=== PATIENT | female | born 1955 | race Caucasian/White ===

== ENCOUNTER → 2017-10-14 | Outpatient (REF) | payer OTHER ==
[2017-10-14 16:25] LABS: INFLUENZA A AMPLIFICATION NEGATIVE (NEGATIVE); INFLUENZA B AMPLIFICATION NEGATIVE (NEGATIVE)
== END ==
LOC: M LAB REF 10-15 10:11
DX: J11.1 Influenza due to unidentified influenza virus with other respiratory manifestations (principal)

== ENCOUNTER → 2018-11-27 | Outpatient (CLI) | payer OTHER ==
[~2018-11-27] MED LIST: AMAR1TAB5 PO; COUM2.5T17 PO; DEPA1TAB3 PO; JANU100T PO; KETO10TAB PO; LEXA1TAB2 PO; LIPI20TA PO; NOVOINJ3 SC; NUCY50TA19 PO; PROTPAK PO; TRAM50TA2 PO; TYLE325T5 PO
[2018-11-27 10:50] LABS: BASO % 0.4 % (0.0-1.0); EOS # 0.1 10^3/uL (0.0-0.50); EOS % 1.8 % (0.0-3.0); HEMATOCRIT 39.6 % (36.0-47.0); HEMOGLOBIN 12.9 g/dl (12.0-15.5); LYMPH # 1.8 10^3/uL (1.5-4.5); LYMPH % 36.3 % (24.0-44.0); MEAN CORPUSCULAR HEMOGLOBIN 28.4 pg (27.0-33.0); MEAN CORPUSCULAR HGB CONC 32.6 g/dl (32.0-36.5); MONO # 0.6 10^3/uL (0.0-0.8); MONO % 11.3 % (0.0-5.0); NEUTROPHILS # 2.4 10^3/uL (1.8-7.7); PLATELET COUNT, AUTOMATED 180 10^3/uL (150-450); RED BLOOD COUNT 4.55 10^6/uL (4.00-5.40); WHITE BLOOD COUNT 4.9 10^3/uL (4.0-10.0)
[2018-11-27 11:23] LABS: CHOLESTEROL RISK RATIO 3.49 (<5); VALPROIC ACID (DEPAKOTE) 63.3 UG/ML (50.0-100.0)
[2018-11-27 11:37] LABS: MALB URINE SIEMENS 5.2 MG/L; MAU/CREAT RATIO 2.9 MCG/MG (0.0-30.0)
[2018-11-27 11:42] LABS: HEMOGLOBIN A1c 7.8 %
== END ==
LOC: M LAB 09:45
PROVIDERS: ATTEND Nurse Practitioner Family
DX: E11.69 Type 2 diabetes mellitus with other specified complication (principal); G40.909 Epilepsy, unspecified, not intractable, without status epilepticus; E78.5 Hyperlipidemia, unspecified

== ENCOUNTER → 2019-06-26 | Outpatient (CLI) | payer OTHER ==
[2019-06-26 10:28] LABS: HEMOGLOBIN A1c 8.7 %
[2019-06-26 11:08] LABS: ALBUMIN 3.7 GM/DL (3.2-5.2); ALT/SGPT 23 U/L (12-78); BILIRUBIN,TOTAL 0.5 MG/DL (0.2-1.0); BLOOD UREA NITROGEN 18 MG/DL (7-18); CALCIUM LEVEL 9.3 MG/DL (8.8-10.2); CARBON DIOXIDE LEVEL 28 MEQ/L (21-32); CHLORIDE LEVEL 106 MEQ/L (98-107); CHOLESTEROL LEVEL 289 MG/DL (<200); CHOLESTEROL RISK RATIO 5.351 (<5); CREATININE FOR GFR 0.88 MG/DL (0.55-1.30); FREE T4 0.88 NG/DL (0.76-1.46); GLOMERULAR FILTRATION RATE > 60.0 (>45); GLUCOSE, FASTING 187 MG/DL (70-100); HDL CHOLESTEROL 54 MG/DL (>40); LDL CHOLESTEROL 182 MG/DL (<100); NON-HDL-C 235 MG/DL; POTASSIUM SERUM 4.4 MEQ/L (3.5-5.1); SODIUM LEVEL 140 MEQ/L (136-145); TOTAL PROTEIN 6.8 GM/DL (6.4-8.2); TRIGLYCERIDES LEVEL 264 MG/DL (<150)
== END ==
LOC: M LAB 09:08
DX: E11.69 Type 2 diabetes mellitus with other specified complication (principal); I10 Essential (primary) hypertension; E78.5 Hyperlipidemia, unspecified

== ENCOUNTER 2020-03-14 13:04 | Emergency (ER) | payer OTHER ==
[~2020-03-14] VITALS: Ht 154.9 cm; Wt 109.1 kg
[2020-03-14] MEDS ORDERED: ADME100I (13:17)
[2020-03-14] MEDS ORDERED: FURO20TA2 (13:17)
[2020-03-14] MEDS ORDERED: METF500T13 (13:17)
[2020-03-14] MEDS ORDERED: GLIM4TAB5 (13:17)
[2020-03-14] MEDS ORDERED: PANT40TA3 PO (13:40)
[2020-03-14] MEDS ORDERED: LEXA5TAB13 PO (13:40)
[2020-03-14] MEDS ORDERED: LABE10TAB PO (13:40)
[2020-03-14] MEDS ORDERED: PROM25TA12 PO (13:40)
--- NOTE | 2020-03-14 13:56 | REP ---
Clinical: Trauma. Technique: AP, lateral, bilateral oblique views of the right and left knee. Findings: Right knee demonstrates advanced tricompartmental osteoarthritic degenerative changes and soft tissue swelling. Lateral view demonstrates a corner fracture along the superior margin of the patella of indeterminate age and clinical correlation is recommended. Left knee demonstrates prior arthroplasty without acute fracture or dislocation. Impression: Cannot exclude acute versus chronic fracture along the superior margin of the right patella. Electronically Signed by Mariano Orantes MD 03/14/2020 01:47 P
--- NOTE | 2020-03-14 14:48 | REP ---
Clinical: Trauma. Possible acute patellar fracture. Technique: Axial noncontrast images of the right knee with coronal and sagittal re-formations. Findings: Advanced tricompartmental osteoarthritic degenerative changes are appreciated. The patella demonstrates a fractured osteophytes along the superior margin which appear well corticated and likely represent old fractures. There is no evidence for acute fracture or dislocation to the knee. A small to moderate joint and suprapatellar effusion is noted which may be chronic. The subcutaneous tissues appear relatively normal and without significant traumatic stranding. Visualized musculature appear relatively age-appropriate. Impression: 1. Advanced tricompartmental osteoarthritic degenerative changes along with presumed chronic effusion. 2. Fractured fragments along the superior aspect of the patella identified on x-ray appear well corticated and likely represent chronic injury. Electronically Signed by Mariano Orantes MD 03/14/2020 02:39 P
[2020-03-14 15:17] VITALS: BP 155/78
== END 2020-03-14 15:20 | disposition home or self-care (01) ==
LOC: M ED 13:04
DX: S80.01XA Contusion of right knee, initial encounter (principal); S80.02XA Contusion of left knee, initial encounter; W10.9XXA Fall (on) (from) unspecified stairs and steps, initial encounter; Y92.099 Unspecified place in other non-institutional residence as the place of occurrence of the external cause; Y93.9 Activity, unspecified; Y99.9 Unspecified external cause status; M17.11 Unilateral primary osteoarthritis, right knee; E11.9 Type 2 diabetes mellitus without complications; Z79.4 Long term (current) use of insulin; Z79.899 Other long term (current) drug therapy; Z88.0 Allergy status to penicillin; Z88.8 Allergy status to other drugs, medicaments and biological substances

== ENCOUNTER → 2020-07-13 | Outpatient (CLI) | payer OTHER ==
[~2020-07-13] MED LIST changes: +ADME100I; +FURO20TA2; +GLIM4TAB5; +LABE10TAB PO; +LEXA5TAB13 PO; +METF500T13; +PANT40TA29 PO; +PROM25TA12 PO
[2020-07-13 11:03] LABS: HEMOGLOBIN 14.1 g/dl (12.0-15.5); MEAN CORPUSCULAR HEMOGLOBIN 28.7 pg (27.0-33.0); MEAN CORPUSCULAR VOLUME 89.4 fl (80.0-96.0); PLATELET COUNT, AUTOMATED 235 10^3/uL (150-450); RED BLOOD COUNT 4.92 10^6/uL (4.00-5.40); WHITE BLOOD COUNT 6.6 10^3/uL (4.0-10.0)
[2020-07-13 11:13] LABS: INR 0.93; PROTHROMBIN TIME 12.7 SECONDS (12.5-14.3)
[2020-07-13 11:28] LABS: ALBUMIN 3.8 GM/DL (3.2-5.2); ALT/SGPT 43 U/L (12-78); BILIRUBIN,TOTAL 0.5 MG/DL (0.2-1.0); BLOOD UREA NITROGEN 11 MG/DL (7-18); CARBON DIOXIDE LEVEL 27 MEQ/L (21-32); CHLORIDE LEVEL 106 MEQ/L (98-107); CREATININE FOR GFR 0.97 MG/DL (0.55-1.30); GLOMERULAR FILTRATION RATE > 60.0 (>45); GLUCOSE, FASTING 133 MG/DL (70-100); SODIUM LEVEL 139 MEQ/L (136-145); TOTAL PROTEIN 7.1 GM/DL (6.4-8.2)
[2020-07-13 11:33] LABS: ERYTHROCYTE SEDIMENTATION RATE 9 mm/hr (0-30)
--- NOTE | 2020-07-13 11:44 | REP ---
INDICATION: RIGHT KNEE ARTHROPLASTY LAB 1ST, EKG 2ND, XRAY 3RD. COMPARISON: 10/01/2015 TECHNIQUE: Two views FINDINGS: Lungs remain well inflated and clear. The heart mediastinal and hilar contours were unchanged. No cardiomegaly, vascular redistribution or edema. The aorta is mildly tortuous and ectatic but stable. Airway intact. There are degenerative changes throughout the spine with marginal osteophytes but no compression deformity. Right upper quadrant clips from prior cholecystectomy. IMPRESSION: 1. No acute cardiopulmonary changes, stable chest. <Electronically signed by Clyde Tavera > 07/13/20 [id number]
--- NOTE | 2020-07-13 14:11 | ECGEPIP ---
[facility] Test Date: 2020-07-13 Pat Name: NIRALI STORY Department: Room: - Gender: Female Avionics Systems Technician: : 1955 Requested By: Lucas Goldman Order Number: [id number] Reading MD: Toni Casas Measurements Intervals [place] Rate: 80 P: 54 HI: 134 QRS: 2 QRSD: 82 T: 75 QT: 332 QTc: 385 Interpretive Statements SINUS RHYTHM WITH SINUS ARRHYTHMIA Short HI interval Nonspecific ST-T wave abnormalities Similar to tracing done 10-18-15 Electronically Signed on 07-13-2020 14:10:59 EST by Toni Casas
== END ==
LOC: M LAB 10:11
PROVIDERS: ATTEND Orthopaedic Surgery
DX: Z01.818 Encounter for other preprocedural examination (principal); M17.11 Unilateral primary osteoarthritis, right knee; R94.31 Abnormal electrocardiogram [ECG] [EKG]

== ENCOUNTER → 2020-07-17 | Outpatient (CLI) | payer OTHER ==
[~2020-07-17] MED LIST changes: -ADME100I; +ADME100I SQ; +BASA100I SC; -FURO20TA2; +FURO20TA2 PO; -GLIM4TAB5; +GLIM4TAB5 PO; +LOVE1INJ SC; -METF500T13; +METF500T13 PO; +XARE20TA PO
== END ==
LOC: M LABSMTC 08:16
PROVIDERS: ATTEND Anesthesiology
DX: Z01.812 Encounter for preprocedural laboratory examination (principal); Z20.828 Contact with and (suspected) exposure to other viral communicable diseases
CPT/HCPCS: C9803; U0003

== ENCOUNTER 2020-07-22 06:45 | Inpatient (IN) | payer OTHER ==
--- NOTE | 2020-07-20 07:15 | HPE ---
DATE OF ANTICIPATED ADMISSION: 07/22/2020 CHIEF COMPLAINT: Right knee pain. HISTORY OF PRESENT ILLNESS: Prisca is a pleasant 64-year-old female with progressively worsening right knee pain and stiffness. She has failed to improve with conservative treatment. She has elected for surgery for her intrinsic symptoms. She has pain with weight bearing activities and her activities of daily living. X-rays of her knee are notable for advanced osteoarthritis of the right knee joint. She has consented for a right total knee arthroplasty by Dr. Lucas Goldman. Medical optimization was performed by Dr. Golden office. ALLERGIES: * Demerol. * Penicillin. CURRENT MEDICATIONS: * Alogliptin 25 mg daily. * Pantoprazole Sodium 40 mg daily. * Atorvastatin 40 mg daily. * Glimepiride 4 mg daily. * Divalproex 500 mg twice daily. * NovoLog 35 units three times daily. * Toujeo 10 mg at bedtime. PAST MEDICAL HISTORY: The patient's past medical history includes: 1. Diabetes. 2. Gastroesophageal reflux disease. PAST SURGICAL HISTORY: The patient's past surgical history is significant for: 1. Left total knee. 2. Throat surgery. 3. Hysterectomy. 4. Hand surgery. 5. Abdominal surgeries. 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 FAMILY HISTORY: Noncontributory. REVIEW OF SYSTEMS: This patient denies chest pain, heart palpitations, cough, wheezing, difficulty breathing and shortness of breath. She denies abdominal pain, nausea, vomiting, diarrhea or constipation. She denies recent upper respiratory infection or urinary tract infection symptoms. She does complain of persistent pain in the right knee. PHYSICAL EXAMINATION: GENERAL APPEARANCE: A well-developed, well-nourished, in no acute distress, alert female patient. She walks with a moderate limp, favoring her right lower extremity. She is not using assistive devices. VITAL SIGNS: She is 5 feet, 3 inches, weighs 248.8 pounds with a temperature of 98, blood pressure 138/55, pulse of 68 and respirations of 12. NECK: Supple without adenopathy or jugular venous distention. No carotid bruits appreciated. LUNGS: Upon auscultation, lungs were clear to auscultation with rales or wheeze throughout. HEART: Regular rate and rhythm. ABDOMEN: Bowel sounds were present. EXTREMITIES: Examination of the knee revealed intact skin. She had decreased range of motion due to pain and stiffness. The limbs neurovascularly are intact. IMAGING: EKG shows normal sinus rhythm at 80 beats per minute. Chest x-ray showed no acute cardiopulmonary disease processes. LABORATORY STUDIES: Pro time 12.7, INR 0.93, glucose 133, BUN 11, creatinine 0.97, sodium 139, potassium 4.0. CBC was within normal limits. Sed rate was 9. IMPRESSION: Symptomatic osteoarthritis of the right knee. PLAN: Consented for a right total knee arthroplasty by Dr. Lucas Goldman. MIKE
[~2020-07-22] VITALS: Ht 154.9 cm; Wt 111.1 kg
[2020-07-22] VITALS (7 sets, daily range): BP systolic 124–148; BP diastolic 65–89; O2SAT 95
[~2020-07-22 06:45] MED LIST changes: +CLINDAMYCIN 900 MG in IV 1 EA IV ONE; +LIDOCAINE 1% MDV 20ML VIAL SQ PRN; +LR 1,000 ML IV ONE; +fentaNYL 100 MCG/2 ML INJECTION (J3010) IV SCH
[2020-07-22] MEDS ORDERED: TRANEXAMIC ACID 100 MG/ML 10ML VIAL As Ordered ONE (07:27)
[2020-07-22] MEDS ORDERED: EPINEPHrine INJ 1 MG/ML 1ML AMP As Ordered ONE (07:28)
[2020-07-22] MEDS ORDERED: BUPIVACAINE LIPOSOME/PF 1.3% 20ML VIAL (13.3MG/ML)(EXPAREL)(C9290 PER1MG) As Ordered ONE ×2 (07:28→09:41)
[2020-07-22] MEDS ORDERED: fentaNYL 100 MCG/2 ML INJECTION (J3010) As Ordered ONE ×2 (08:21→08:24)
[2020-07-22] MEDS ORDERED: MIDAZOLAM INJ 2MG/2ML VIAL (J2250 PER 1MG) As Ordered ONE ×2 (08:21→08:24)
[2020-07-22] MEDS ORDERED: propofoL 500 MG/50 ML VIAL As Ordered ONE (08:21)
[2020-07-22] MEDS ORDERED: LIDOCAINE 2% 100MG/5ML SDV (FOR ANES.) As Ordered ONE (08:21)
[2020-07-22] MEDS: MIDAZOLAM INJ 2MG/2ML VIAL (J2250 PER 1MG) IV SCH ×2 (08:41→08:45)
[2020-07-22] MEDS ORDERED: BUPIVACAINE HCL 0.25% 10ML VIAL As Ordered ONE (09:10)
[2020-07-22] MEDS ORDERED: CLINDAMYCIN INJ 900MG/6ML VIAL As Ordered ONE (09:15)
[2020-07-22] MEDS ORDERED: dexameTHASONE 4 MG/ML 1ML VIAL (J1100 PER 1MG) As Ordered ONE (10:13)
[2020-07-22] MEDS ORDERED: ONDANSETRON 4MG/2ML VIAL As Ordered ONE (10:13)
[2020-07-22] MEDS ORDERED: KETOROLAC 60MG 2ML VIAL As Ordered ONE (10:13)
[2020-07-22] MEDS ORDERED: MORPHINE 2 MG/ML 1ML VIAL (J2270) IV PRN (11:30)
[2020-07-22] MEDS ORDERED: oxyCODONE 5MG TAB PO PRN (11:30)
[2020-07-22] MEDS ORDERED: ONDANSETRON 4MG/2ML VIAL IV PRN ×2 (11:30)
[2020-07-22] MEDS ORDERED: LR 1,000 ML IV SCH ×2 (11:30)
[2020-07-22] MEDS ORDERED: MORPHINE 4 MG/ML 1ML VIAL/SYRINGE (J2270) IV PRN (11:30)
[2020-07-22] MEDS ORDERED: fentaNYL 100 MCG/2 ML INJECTION (J3010) IV PRN (11:30)
[2020-07-22] MEDS ORDERED: METOCLOPRAMIDE INJ 10MG/2ML VIAL (J2765 PER 1) IV PRN (11:30)
--- NOTE | 2020-07-22 11:41 | REP ---
INDICATION: POST OP. COMPARISON: X-ray and CT 03/14/2020 TECHNIQUE: Two views FINDINGS: Patient has undergone right total knee arthroplasty. Skin dolores are seen anteriorly. There is some air and fluid in the suprapatellar bursa and knee joint and subcutaneous air anterior to the knee. The 3 components of the prosthesis are well aligned in relationship to the [place] bone and each other. IMPRESSION: Status post right total knee arthroplasty. <Electronically signed by Clyde Tavera > 07/22/20 [id number]
[2020-07-22] MEDS ORDERED: dexameTHASONE 10MG/1ML VIAL PRES.FREE (J1100 PER 1MG) ONE (11:43)
[2020-07-22] MEDS ORDERED: ROPIvacaine 0.5% 30ML INJECTION (J2795 PER 1MG) ONE (11:43)
[2020-07-22] MEDS ORDERED: EPINEPHrine INJ 1 MG/ML 1ML AMP ONE (11:43)
--- NOTE | 2020-07-22 14:20 | RO ---
DATE OF OPERATION: 07/22/2020 PREOPERATIVE DIAGNOSIS: Right knee osteoarthritis. POSTOPERATIVE DIAGNOSIS: Right knee osteoarthritis. PROCEDURE: Right total knee arthroplasty ATTUNE, rotating platform, cruciate retaining size 4, femur size 4, tibia 10 polyethylene, 35 patellar button. SURGEON: Lucas Goldman MD AUTO BODY REPAIRER: TONY Stewart ANESTHESIA: Spinal. ESTIMATED BLOOD LOSS: 50 ml COMPLICATIONS: None. PROCEDURE: The patient was taken to the operating room, placed in the supine position after spinal anesthesia was induced. The right lower extremity was prepped and draped in the usual sterile fashion. Time-out was performed, tourniquet inflated. I then created a longitudinal incision over the anterior aspect of the knee, sharply dissected down through subcutaneous tissue. Performed a medial peripatellar arthrotomy and everted the patella with some difficulty due to her morbid obesity. Then I used a rongeur to remove some osteophytes. The canal initiating reamer followed by the intramedullary reamer set at 5 degrees of valgus, 8 mm cut. This was pinned in place. The distal femoral cut was made in the usual fashion. The femur was sized to be a 4 and the drill holes were placed at the end of femur. The cutting block was secured and the remaining cuts were made. I then placed the posterior retractor. I had also done a medial release and removed some soft tissues in the anterior distal femur. The tibial alignment guide was placed and appropriate amount of valgus and posterior slop pinned in place at about 4 off of the low side, which was pretty close to 10 off of the lateral side. The proximal tibial cut was made protecting soft tissues. The PCL was maintained. I then used the electronic installer to remove soft tissue and osteophytes from either side of the knee. The spacer block was then trialed and the size 10 seemed to have excellent stability in range of motion and flexion and extension. The tibial surface was prepared. The sulcus cut was prepared. They used a size 4 tibial tray, pinned it in place, drilled, broached and placed the trial components. The size 10 polyethylene seemed to be the most appropriate. There was excellent stability and excellent range of motion. There was some soft tissue impingement due to obesity posteriorly. I did have to do a bit of a lateral release. I free hand cut the patella, moving about 7 mm of bone sized to be a 35, drilled the holes and put the knee through range of motion, was able to eventually get the patella to tract very nicely. Drill holes were placed at the end of the femur. The pharmacy technician assistant prepared the bone cement in the moderate technique. I then placed the Exparel in the deep tissues with some Marcaine and the surfaces were copiously irrigated and dried. I then cemented on the components, removed excess bone cement, held the patella in place until the cement hardened. I placed the TXA in the deep wound and the repaired the deep layer with #1 Vicryl suture and running STRATAFIX suture and then performed a final irrigation prior to final wound closure. The remaining wound was closed with STRATAFIX. I then irrigated, closed the subcutaneous with 2-0 Vicryl and the skin with dolores. Tourniquet was deflated when the cement was hardened. Sterile dressing was applied and she was taken to the recovery room in stable condition. There are no known complications. This is code unusual difficult procedure due to the patient's body mass index (BMI) of about 41, which made the dissection more difficult. The patella seemed to tract off to the lateral side, had to more centralize. The overall time was extended and the procedure was quite a bit more difficult due to the size of the leg. The pharmacy technician assistant was instrumental in holding retractors and assisting in wound closure and assisting in mixing the bone cement. MIKE
[2020-07-22 15:49] LABS: HEMATOCRIT 39.5 % (36.0-47.0); HEMOGLOBIN 12.9 g/dl (12.0-15.5); MEAN CORPUSCULAR HEMOGLOBIN 29.6 pg (27.0-33.0); MEAN CORPUSCULAR HGB CONC 32.7 g/dl (32.0-36.5); MEAN CORPUSCULAR VOLUME 90.6 fl (80.0-96.0); PLATELET COUNT, AUTOMATED 155 10^3/uL (150-450); RED BLOOD COUNT 4.36 10^6/uL (4.00-5.40); WHITE BLOOD COUNT 8.9 10^3/uL (4.0-10.0)
[2020-07-22] MEDS ORDERED: DEXTROSE 50% 50 ML SYRINGE IV PRN (16:30)
[2020-07-22] MEDS ORDERED: GLUCAGON INJ 1MG VIAL SC PRN (16:30)
[2020-07-22] MEDS ORDERED: GLUCOSE 4GM CHEW TABLET PO PRN (16:30)
--- NOTE | 2020-07-22 16:38 | HPEPDOC ---
General Date of Admission Jul 22, 2020 at 06:45 Date of Service: Jul 22, 2020 Chief Complaint The patient is a 64-year-old female admitted with a reason for visit of Right Knee Arthritis. Source: Patient Exam Limitations: No limitations Severity: Mild, Moderate History of Present Illness Patient is 64 years old female with past history of type 2 diabetes, pulmonary emboli and GERD presented hospital for elective right knee replacement. This surgery was done today, patient tolerated procedure well. Patient stated that a few years ago she developed pulmonary emboli, patient was on the xarelto. Patient denied fever, chills, nausea, went, diarrhea or dysuria. Home Medications Scheduled Divalproex Sodium (Depakote) 500 Mg Tab, 500 MG PO TID, (Reported) Escitalopram Oxalate (Lexapro) 5 Mg Tablet, 5 MG PO DAILY, (Reported) Furosemide (Furosemide) 20 Mg Tablet, 20 MG PO DAILY, (Reported) Glimepiride (Glimepiride) 4 Mg Tablet, 4 MG PO BID, (Reported) Insulin Glargine,Hum.rec.anlog (Basaglar Kwikpen U-100) 100 Unit/1 Ml Insuln.pen, 18 UNITS SC QHS, (Reported) Insulin Lispro (Admelog) 100 Unit/1 Ml Vial, 40 UNITS SQ TID, (Reported) Labetalol HCl (Labetalol HCl) 100 Mg Tablet, 100 MG PO BID, (Reported) Metformin HCl (Metformin HCl) 500 Mg Tablet, 500 MG PO BID, (Reported) Pantoprazole Sodium (Pantoprazole Sodium) 40 Mg Tablet.dr, 40 MG PO DAILY, (Reported) Rivaroxaban (Xarelto) 20 Mg Tablet, 20 MG PO DAILY, (Reported) with food Miscellaneous Medications Enoxaparin Sodium (Lovenox) 40 Mg/0.4 Ml Syringe, 80 MG SC, (Reported) pt will be taking on 07/21/20 day before surgery as per dr wahl Allergies Coded Allergies: meperidine (Verified Allergy, Severe, throat swelling, 07/16/20) Penicillins (Verified Allergy, Intermediate, hives, 07/16/20) Past Medical History Medical History Diabetes type 2, acid reflux, hypertension, hyperlipidemia, osteoarthritis Surgical History 1. Left total knee. 2. Throat surgery. 3. Hysterectomy. 4. Hand surgery. 5. Abdominal surgeries. Family History I personally reviewed family history and found not pertinent Social History * Smoker: Denies Alcohol: Denies Drugs: denies A-FIB/CHADSVASC A-FIB History Current/History of A-Fib/PAF?: No Current PO Anticoag Therapy: No Review of Systems Constitutional: Denies: Chills, Fever Eyes: Denies: Pain ENT: Denies: Head Aches Skin: Denies: Rash Pulmonary: Denies: Dyspnea, Cough Cardiovascular: Denies: Chest Pain Gastrointestinal: Denies: Nausea, Vomiting Genitourinary: Denies: Dysuria Hematologic: Denies: Bruising Endocrine: Denies: Polydipsia, Polyphagia Musculoskeletal: Denies: Neck Pain Psych: Reports: Mood Normal Physical Examination General Exam: Positive: Alert, Cooperative Eye Exam: Positive: PERRLA ENT Exam: Positive: Atraumatic Neck Exam: Positive: Supple; Negative: JVD Chest Exam: Positive: Clear to auscultation Heart Exam: Positive: Rate Normal Telemetry: Positive: No significant arrhythmia Abdomen Exam: Positive: Normal bowel sounds Extremity Exam: Negative: Clubbing, Cyanosis Skin Exam: Positive: Nl turgor and temperature Neuro Exam: Positive: Cranial Nerves 3-12 NL, Reflexes 2+ Psych Exam: Positive: Mental status NL Vital Signs Vital Signs Date Time Temp Pulse Resp B/P (MAP) Pulse Ox O2 Delivery O2 Flow Rate FiO2 07/22/20 15:50 97.8 70 16 148/89 (108) 97 Room Air 07/22/20 14:40 2 Laboratory Data Labs 24H Laboratory Tests 2 07/22/20 07:57: Bedside Glucose (Misc Panel) 169H 07/22/20 11:22: Bedside Glucose (Misc Panel) 183H 07/22/20 15:41: Nucleated Red Blood Cells % (auto) 0.0 CBC/BMP Laboratory Tests 07/22/20 15:41 Assessment/Plan Patient is 64 years old female with past history of type 2 diabetes, pulmonary emboli and GERD presented hospital for elective right knee replacement. This surgery was done today, patient tolerated procedure well. Patient stated that a few years ago she developed pulmonary emboli, patient was on the xarelto. Patient denied fever, chills, nausea, went, diarrhea or dysuria. Problems (1) Status post right knee replacement Status: Acute Problem Text: Pain management Continue oral targeted anticoagulation (2) Diabetes mellitus Status: Chronic Problem Text: Continue home insulin regimen Insulin sliding scale with before meals, at bedtime Levemir 20U Diabetes diet (3) GERD (gastroesophageal reflux disease) Problem Text: Continue PPI Plan / VTE VTE Prophylaxis Ordered?: Yes MALLIKA DENTON DO Jul 22, 2020 16:38
[2020-07-22] MEDS ORDERED: HumaLOG INSULIN (NovoLOG) PER UNIT SQ SCH (17:30)
[2020-07-22] MEDS: PERCOCET 5MG/325MG TAB PO PRN ×2 (17:45→22:14)
[2020-07-22] MEDS: CLINDAMYCIN 900 MG in IV 1 EA IV SCH (17:50)
[2020-07-22] MEDS: HumaLOG INSULIN (NovoLOG) PER UNIT SC SCH ×2 (17:51→22:15)
[2020-07-22] MEDS ORDERED: GLIMEPIRIDE 2 MG TAB PO SCH (18:00)
[2020-07-22] MEDS ORDERED: metFORMIN (GLUCOPHAGE) 500 MG TAB PO SCH (18:00)
[2020-07-22] MEDS: DIVALPROEX 500 MG TAB PO SCH (22:14)
[2020-07-22] MEDS: LEVEMIR (INSULIN DETEMIR) 1 UNITS/0.01ML SC SCH (22:15)
[2020-07-22] MEDS: LABETALOL 100 MG TAB PO SCH (22:16)
[2020-07-23 01:48] VITALS: BP 109/56
[2020-07-23] MEDS: PERCOCET 5MG/325MG TAB PO PRN ×4 (02:32→20:38)
[2020-07-23] MEDS: CLINDAMYCIN 900 MG in IV 1 EA IV SCH (02:32)
[2020-07-23 06:32] VITALS: BP 106/57
[2020-07-23] MEDS ORDERED: PERC5TAB12 PO (06:49)
[2020-07-23] MEDS: HumaLOG INSULIN (NovoLOG) PER UNIT SC SCH ×4 (07:21→20:38)
[2020-07-23] MEDS: LABETALOL 100 MG TAB PO SCH ×3 (09:00→20:39)
[2020-07-23 09:57] VITALS: BP 121/68
[2020-07-23] MEDS: ESCITALOPRAM OXALATE 5MG TABLET (LEXAPRO) PO SCH (09:58)
[2020-07-23] MEDS: PANTOPRAZOLE 40MG TAB (PROTONIX) PO SCH (09:58)
[2020-07-23] MEDS: MIRALAX *UNIT DOSE* 17GM PACKET PO SCH (09:58)
[2020-07-23] MEDS: DIVALPROEX 500 MG TAB PO SCH ×3 (09:59→20:38)
[2020-07-23] MEDS: FUROSEMIDE 20 MG TAB PO SCH (10:00)
[2020-07-23] MEDS: MOM 30ML SUSPENSION UDC PO SCH (10:00)
--- NOTE | 2020-07-23 11:43 | IPN ---
ORTHOPAEDIC PROGRESS NOTE DATE: 07/22/2020 SUBJECTIVE AND PLAN: Patient seen and examined. She wished to go ahead with a right total knee arthroplasty. She is aware of the nature of the procedure, the risks of bleeding, infection, damage to nerves and vessels, persistent pain, gomes loosening, blood clots, medical problems, among others. MIKE
[2020-07-23 14:00] VITALS: BP 111/50
[2020-07-23 18:00] VITALS: BP 108/52
[2020-07-23] MEDS ORDERED: RIVAROXABAN 20 MG TAB (XARELTO) PO SCH (18:00)
[2020-07-23 20:22] VITALS: BP 123/71
[2020-07-23] MEDS: LEVEMIR (INSULIN DETEMIR) 1 UNITS/0.01ML SC SCH (20:37)
[2020-07-24] MEDS: PERCOCET 5MG/325MG TAB PO PRN (01:50)
[2020-07-24 05:53] VITALS: BP 124/62
[2020-07-24 08:09] VITALS: BP 124/62
[2020-07-24] MEDS: MOM 30ML SUSPENSION UDC PO SCH (08:09)
[2020-07-24] MEDS: DIVALPROEX 500 MG TAB PO SCH (08:09)
[2020-07-24] MEDS: LABETALOL 100 MG TAB PO SCH (08:09)
[2020-07-24] MEDS: ESCITALOPRAM OXALATE 5MG TABLET (LEXAPRO) PO SCH (08:09)
[2020-07-24] MEDS: MIRALAX *UNIT DOSE* 17GM PACKET PO SCH (08:09)
[2020-07-24] MEDS: PANTOPRAZOLE 40MG TAB (PROTONIX) PO SCH (08:09)
[2020-07-24] MEDS: FUROSEMIDE 20 MG TAB PO SCH (08:10)
[2020-07-24] MEDS: HumaLOG INSULIN (NovoLOG) PER UNIT SC SCH ×2 (08:10→12:56)
--- NOTE | 2020-07-27 07:27 | DS ---
DATE OF ADMISSION: 07/22/2020 DATE OF DISCHARGE: 07/24/2020 ATTENDING: Lucas Goldman MD. ADMITTING DIAGNOSIS: Osteoarthritis right knee. OTHER DIAGNOSES: Include: * Diabetes type-2. * Pulmonary emboli. * Gastroesophageal reflux disease. * Hypertension. * Elevated lipids. DISCHARGE DIAGNOSIS: Osteoarthritis right knee status post right total knee arthroplasty. HISTORY: This is a 64-year-old female patient with progressively worsening right knee pain and stiffness. She failed to improve with conservative management. She was admitted for elective knee replacement on the right side. OPERATION PERFORMED: Right total knee arthroplasty. HOSPITAL COURSE: The patient was admitted on the day of surgery and underwent a right total knee arthroplasty which was uneventful. She did well in the post- operative period and hospital course was without complications. She was up with physical therapy per their protocol and her pain was controlled. On the day of discharge she was weightbearing as tolerated on her right lower extremity. She will use Xarelto 20 mg per the protocol for DVT prophylaxis as well as Blayne stockings for 30 days post-op for DVT prophylaxis. She will resume her pre- operative medications and diet. She will use oral pain medications for pain control. She was given instructions to include, but not limited to wound monitoring, activity limitations. She will then follow up with in our office in 10-14 days for a surgical follow up. Please refer to the medical record for further details. MIKE
== END 2020-07-24 13:25 | disposition home or self-care (01) | DRG 302 ==
LOC: M OR 06:45 → M MS5PR 14:50
PROVIDERS: ADMIT Orthopaedic Surgery; ATTEND Orthopaedic Surgery
PROC: 0SRC0J9 Replacement of Right Knee Joint with Synthetic Substitute, Cemented, Open Approach (ICD-10-PCS; principal; 2020-07-22 09:25)
DX: M17.11 Unilateral primary osteoarthritis, right knee (principal); E11.9 Type 2 diabetes mellitus without complications; Z79.899 Other long term (current) drug therapy; Z88.0 Allergy status to penicillin; K21.9 Gastro-esophageal reflux disease without esophagitis; Z96.652 Presence of left artificial knee joint

== ENCOUNTER → 2020-08-16 | Outpatient (CLI) | payer OTHER ==
[~2020-08-16] MED LIST changes: -CLINDAMYCIN 900 MG in IV 1 EA IV ONE; +LABE100T4 PO; -LABE10TAB PO; -LIDOCAINE 1% MDV 20ML VIAL SQ PRN; -LR 1,000 ML IV ONE; +PERC5TAB12 PO; -fentaNYL 100 MCG/2 ML INJECTION (J3010) IV SCH
[2020-08-16 13:38] LABS: BASO % 0.4 % (0.0-1.0); EOS # 0.1 10^3/uL (0.0-0.5); EOS % 1.9 % (0.0-3.0); HEMATOCRIT 40.8 % (36.0-47.0); HEMOGLOBIN 12.6 g/dl (12.0-15.5); LYMPH # 1.6 10^3/uL (1.5-5.0); LYMPH % 32.5 % (24.0-44.0); MEAN CORPUSCULAR HEMOGLOBIN 28.6 pg (27.0-33.0); MEAN CORPUSCULAR HGB CONC 30.9 g/dl (32.0-36.5); MEAN CORPUSCULAR VOLUME 92.7 fl (80.0-96.0); MONO # 0.5 10^3/uL (0.0-0.8); NEUTROPHILS # 2.6 10^3/uL (1.5-8.5); NEUTROPHILS % 53.8 % (36.0-66.0); PLATELET COUNT, AUTOMATED 206 10^3/uL (150-450); WHITE BLOOD COUNT 4.8 10^3/uL (4.0-10.0)
[2020-08-16 13:58] LABS: ERYTHROCYTE SEDIMENTATION RATE 8 mm/hr (0-30)
== END ==
LOC: M PLALAB 11:05
PROVIDERS: ATTEND Orthopaedic Surgery
DX: Z47.1 Aftercare following joint replacement surgery (principal)

== ENCOUNTER 2021-08-02 11:14 | Observation (INO) | payer MEDICARE, OTHER ==
[~2021-08-02] VITALS: Ht 154.9 cm; Wt 110.0 kg
[2021-08-02 12:21] LABS: BASO % 0.2 % (0.0-1.0); EOS % 0.5 % (0.0-3.0); HEMATOCRIT 43.3 % (36.0-47.0); HEMOGLOBIN 14.5 g/dl (12.0-15.5); LYMPH % 24.5 % (24.0-44.0); MEAN CORPUSCULAR HEMOGLOBIN 28.5 pg (27.0-33.0); MEAN CORPUSCULAR HGB CONC 33.5 g/dl (32.0-36.5); MEAN CORPUSCULAR VOLUME 85.1 fl (80.0-96.0); MONO # 0.3 10^3/uL (0.0-0.8); MONO % 7.4 % (2.0-8.0); NEUTROPHILS # 2.7 10^3/uL (1.5-8.5); NEUTROPHILS % 66.4 % (36.0-66.0); PLATELET COUNT, AUTOMATED 154 10^3/uL (150-450); RED BLOOD COUNT 5.09 10^6/uL (4.00-5.40); WHITE BLOOD COUNT 4.1 10^3/uL (4.0-10.0)
[2021-08-02] MEDS ORDERED: ACETAMINOPHEN TAB 650MG DOSE (2X325MG) PO ONE (12:25)
[2021-08-02 12:48] LABS: ALBUMIN 3.3 GM/DL (3.2-5.2); ALT/SGPT 72 U/L (12-78); BILIRUBIN,DIRECT 0.2 MG/DL (0.0-0.2); BILIRUBIN,TOTAL 0.6 MG/DL (0.2-1.0); BLOOD UREA NITROGEN 20 MG/DL (7-18); CALCIUM LEVEL 8.8 MG/DL (8.8-10.2); CARBON DIOXIDE LEVEL 23 MEQ/L (21-32); CHLORIDE LEVEL 100 MEQ/L (98-107); CREATININE FOR GFR 0.92 MG/DL (0.55-1.30); GLOMERULAR FILTRATION RATE > 60.0 (>45); GLUCOSE, FASTING 262 MG/DL (70-100); LIPASE 225 U/L (73-393); POTASSIUM SERUM 3.9 MEQ/L (3.5-5.1); SODIUM LEVEL 134 MEQ/L (136-145); TOTAL PROTEIN 7.3 GM/DL (6.4-8.2)
[2021-08-02] MEDS ORDERED: ISOVUE-370 76% 100ML VIAL As Ordered ONE (13:24)
[2021-08-02] MEDS ORDERED: ACETAMINOPHEN TAB 650MG DOSE (2X325MG) PO PRN (15:40)
[2021-08-02] MEDS: NS 1,000 ML IV SCH (15:50)
[2021-08-02] MEDS ORDERED: ONDANSETRON 4MG/2ML VIAL IV PRN (15:50)
[2021-08-02] MEDS ORDERED: GLUCOSE 4GM CHEW TABLET PO PRN (15:55)
[2021-08-02] MEDS ORDERED: DEXTROSE 50% 50 ML SYRINGE IV PRN (15:55)
[2021-08-02] MEDS ORDERED: GLUCAGON INJ 1MG VIAL SC PRN (15:55)
[2021-08-02] MEDS ORDERED: METOCLOPRAMIDE INJ 10MG/2ML VIAL (J2765 PER 1) IV ONE (15:55)
[2021-08-02] MEDS ORDERED: HOME MED LIST COMPLETE! XX SCH (16:45)
[2021-08-02] MEDS ORDERED: LABE200T32 PO (17:05)
[2021-08-02 17:55] LABS: INFLUENZA A AMPLIFICATION NEGATIVE (NEGATIVE); INFLUENZA B AMPLIFICATION NEGATIVE (NEGATIVE)
[2021-08-02] MEDS: HumaLOG INSULIN (NovoLOG) PER UNIT SC SCH (19:45)
[2021-08-02 20:12] VITALS: BP 161/79; O2SAT 94
[2021-08-02 21:00] VITALS: O2SAT 94
[2021-08-02] MEDS ORDERED: HumaLOG INSULIN (NovoLOG) PER UNIT SC SCH (21:00)
[2021-08-02] MEDS: DIVALPROEX 500 MG TAB PO SCH (22:07)
[2021-08-02] MEDS: guaiFENesin ER 600 MG TAB PO SCH (22:07)
[2021-08-02] MEDS: BENZONATATE 100MG CAPSULE PO SCH (22:09)
[2021-08-02] MEDS: LABETALOL 200 MG TAB PO SCH (22:09)
[2021-08-02 23:00] VITALS: O2SAT 94
[2021-08-03] VITALS (11 sets, daily range): BP systolic 150–160; BP diastolic 67–77; O2SAT 94–96
[2021-08-03] MEDS: NS 1,000 ML IV SCH (04:28)
[2021-08-03 06:18] LABS: BASO % 0.6 % (0.0-1.0); EOS % 0.3 % (0.0-3.0); HEMATOCRIT 36.4 % (36.0-47.0); LYMPH # 1.1 10^3/uL (1.5-5.0); LYMPH % 32.5 % (24.0-44.0); MEAN CORPUSCULAR HEMOGLOBIN 28.9 pg (27.0-33.0); MEAN CORPUSCULAR HGB CONC 33.5 g/dl (32.0-36.5); MEAN CORPUSCULAR VOLUME 86.3 fl (80.0-96.0); MONO # 0.3 10^3/uL (0.0-0.8); MONO % 8.6 % (2.0-8.0); NEUTROPHILS % 56.9 % (36.0-66.0); PLATELET COUNT, AUTOMATED 147 10^3/uL (150-450); RED BLOOD COUNT 4.22 10^6/uL (4.00-5.40); WHITE BLOOD COUNT 3.5 10^3/uL (4.0-10.0)
[2021-08-03 06:26] LABS: HEMOGLOBIN 12.2 g/dl (12.0-15.5)
[2021-08-03 06:35] LABS: BLOOD UREA NITROGEN 14 MG/DL (7-18); CALCIUM LEVEL 8.4 MG/DL (8.8-10.2); CARBON DIOXIDE LEVEL 23 MEQ/L (21-32); CHLORIDE LEVEL 105 MEQ/L (98-107); CREATININE FOR GFR 0.78 MG/DL (0.55-1.30); GLOMERULAR FILTRATION RATE > 60.0 (>45); GLUCOSE, FASTING 229 MG/DL (70-100); POTASSIUM SERUM 3.9 MEQ/L (3.5-5.1); SODIUM LEVEL 139 MEQ/L (136-145)
[2021-08-03] MEDS ORDERED: RIVAROXABAN 20 MG TAB (XARELTO) PO SCH (08:00)
[2021-08-03] MEDS: HumaLOG INSULIN (NovoLOG) PER UNIT SC SCH ×2 (08:38→12:32)
[2021-08-03] MEDS: guaiFENesin ER 600 MG TAB PO SCH (08:38)
[2021-08-03] MEDS: LABETALOL 200 MG TAB PO SCH (08:38)
[2021-08-03] MEDS: DIVALPROEX 500 MG TAB PO SCH (08:38)
[2021-08-03] MEDS: BENZONATATE 100MG CAPSULE PO SCH (08:38)
[2021-08-03] MEDS ORDERED: LACTOBACILLUS ACIDOPHILUS CAP (BACID) PO SCH (09:00)
[2021-08-03] MEDS ORDERED: ESCITALOPRAM OXALATE 5MG TABLET (LEXAPRO) PO SCH (09:00)
[2021-08-03] MEDS ORDERED: RISATAB3 PO (09:20)
[2021-08-03] MEDS ORDERED: BENZ-18 PO ×2 (09:20→09:21)
== END 2021-08-03 14:40 | disposition home or self-care (01) ==
LOC: M ED 11:14 → M ED INP 11:15 → M 4MAIN 20:03
PROVIDERS: ADMIT Internal Medicine; ATTEND Internal Medicine
DX: R55 Syncope and collapse (principal); U07.1 COVID-19; E86.0 Dehydration; I10 Essential (primary) hypertension; E11.9 Type 2 diabetes mellitus without complications; K21.9 Gastro-esophageal reflux disease without esophagitis; Z79.84 Long term (current) use of oral hypoglycemic drugs; Z79.01 Long term (current) use of anticoagulants; Z79.899 Other long term (current) drug therapy; Z88.0 Allergy status to penicillin; R10.12 Left upper quadrant pain; R11.0 Nausea; M19.90 Unspecified osteoarthritis, unspecified site; Z79.82 Long term (current) use of aspirin; Z88.8 Allergy status to other drugs, medicaments and biological substances
CPT/HCPCS: 36415; 70450; 71045; 71275; 74177; 80047; 80048; 80076; 83690; 83735; 84484; 85025; 87040; 87502; 93005; 93041; 93306; 94760; 97161; 97530; 99285; G0378; J2765; Q9967

== ENCOUNTER 2024-11-04 16:00 | Emergency (ER) | payer MEDICARE, OTHER ==
[~2024-11-04] VITALS: Ht 175.3 cm; Wt 104.5 kg
[~2024-11-04 16:00] MED LIST changes: +BENZ-18 PO; -LABE100T4 PO; +LABE100T6 PO; +LABE200T5 PO; +RISATAB3 PO
[2024-11-04] MEDS ORDERED: MORP15TA2 (16:15)
[2024-11-04] MEDS ORDERED: LANTINJ4 (16:15)
[2024-11-04 16:43] LABS: BASO % 0.4 % (0.0-1.0); EOS # 0.1 10^3/uL (0.0-0.5); EOS % 0.7 % (0.0-3.0); HEMATOCRIT 37.8 % (36.0-47.0); HEMOGLOBIN 12.5 g/dl (12.0-15.5); LYMPH % 26.5 % (24.0-44.0); MEAN CORPUSCULAR HEMOGLOBIN 28.2 pg (27.0-33.0); MEAN CORPUSCULAR HGB CONC 33.1 g/dl (32.0-36.5); MEAN CORPUSCULAR VOLUME 85.3 fl (80.0-96.0); MONO # 0.7 10^3/uL (0.0-0.8); MONO % 8.5 % (2.0-8.0); NEUTROPHILS # 4.8 10^3/uL (1.5-8.5); NEUTROPHILS % 62.7 % (36.0-66.0); PLATELET COUNT, AUTOMATED 180 10^3/uL (150-450); RED BLOOD COUNT 4.43 10^6/uL (4.00-5.40); WHITE BLOOD COUNT 7.7 10^3/uL (4.0-10.0)
[2024-11-04 17:05] LABS: VALPROIC ACID (DEPAKOTE) 13.5 UG/ML (50.0-100.0)
[2024-11-04 17:06] LABS: CPK CREATINE PHOSPHOKINASE 73 U/L (34-145)
[2024-11-04 17:07] LABS: BLOOD UREA NITROGEN 17 MG/DL (9-23); CALCIUM LEVEL 9.5 MG/DL (8.3-10.6); CARBON DIOXIDE LEVEL 28 MMOL/L (20-31); CHLORIDE LEVEL 102 MMOL/L (98-107); CK-MB VALUE MASS < 1.0 NG/ML (<3.6); CREATININE FOR GFR 0.96 MG/DL (0.55-1.30); GLOMERULAR FILTRATION RATE > 60.0 (>45); GLUCOSE, FASTING 184 MG/DL (74-106); INR 0.98; MAGNESIUM LEVEL 1.6 MG/DL (1.8-2.4); MB/CK RELATIVE INDEX 1.36 (< OR =4); PARTIAL THROMBOPLASTIN TIME 22.4 SECONDS (24.8-34.2); POTASSIUM SERUM 4.2 MMOL/L (3.5-5.1); PROTHROMBIN TIME 13.3 SECONDS (12.5-14.5); SODIUM LEVEL 141 MMOL/L (136-145)
[2024-11-04 17:10] LABS: THYROID STIMULATING HORMONE 2.352 uIU/ML (0.55-4.78)
[2024-11-04 17:11] LABS: FREE T4 1.29 NG/DL (0.89-1.76)
[2024-11-04 17:13] VITALS: TEMP 98.7
[2024-11-04] MEDS: PERCOCET 5MG/325MG TAB PO ONE (17:13)
[2024-11-04 18:09] LABS: CK-MB VALUE MASS < 1.0 NG/ML (<3.6)
[2024-11-04 18:14] LABS: CPK CREATINE PHOSPHOKINASE 66 U/L (34-145); MB/CK RELATIVE INDEX 1.51 (< OR =4)
[2024-11-04 18:46] VITALS: BP 124/62; O2SAT 95
[2024-11-04] MEDS ORDERED: MORP1TAB19 PO (18:56)
[2024-11-05] MEDS ORDERED: OXYC10TA3 PO (12:05)
== END 2024-11-04 19:05 | disposition home or self-care (01) ==
LOC: M ED 16:00 → EDBD 16:00 → M ED 19:05
DX: R55 Syncope and collapse (principal); T14.8XXA Other injury of unspecified body region, initial encounter; R29.6 Repeated falls; E11.9 Type 2 diabetes mellitus without complications; I10 Essential (primary) hypertension; E78.5 Hyperlipidemia, unspecified; K21.9 Gastro-esophageal reflux disease without esophagitis; F32.9 Major depressive disorder, single episode, unspecified; M47.894 Other spondylosis, thoracic region; M25.78 Osteophyte, vertebrae; R91.8 Other nonspecific abnormal finding of lung field; M19.011 Primary osteoarthritis, right shoulder; M51.26 Other intervertebral disc displacement, lumbar region; Z79.4 Long term (current) use of insulin; Z79.1 Long term (current) use of non-steroidal anti-inflammatories (NSAID); Z79.899 Other long term (current) drug therapy; Z88.0 Allergy status to penicillin; Z88.8 Allergy status to other drugs, medicaments and biological substances